=== PATIENT | female | born 1980 | race Caucasian/White ===

== ENCOUNTER 2018-08-02 22:42 | Emergency (ER) | payer OTHER ==
[~2018-08-02] VITALS: Ht 152.4 cm; Wt 65.8 kg
[~2018-08-02 22:42] MED LIST: ADDERALL 20 MG20 M1; CLONIDINE; DROSPIRENONE-E1 EACH PO; FLOMAX0.4 MG PO; MACROBID 100 M100 M1 PO; PERCOCET 5-3251 EACH PO; ZOFRAN ODT4 MG PO; ZOLOFT50 MG PO
[2018-08-02] MEDS ORDERED: SYNTHROID75 MCG PO (22:55)
[2018-08-03] MEDS ORDERED: BACTRIM DS TAB1 EACH PO (00:02)
[2018-08-03] MEDS ORDERED: CLEOCIN HCL300 MG PO (00:02)
[2018-08-03] MEDS ORDERED: NORCO 5-325 TA1 EACH PO (00:08)
[2018-08-03] MEDS ORDERED: AUGMENTIN 875-1 EACH PO (00:08)
[2018-08-03 00:11] VITALS: BP 132/78
== END 2018-08-03 00:11 | disposition home or self-care (01) ==
LOC: M.ERS 22:42
DX: S81.851A Open bite, right lower leg, initial encounter (principal); F41.9 Anxiety disorder, unspecified; W54.0XXA Bitten by dog, initial encounter; Y93.89 Activity, other specified; Y92.89 Other specified places as the place of occurrence of the external cause; Y99.8 Other external cause status

== ENCOUNTER 2019-04-13 19:10 | Emergency (ER) | payer OTHER ==
[~2019-04-13] VITALS: Ht 160 cm; Wt 69.8 kg
--- NOTE | ~2019-04-13 | EKG ---
[place] [address] ELECTROCARDIOGRAM REPORT Name: CHRISTY CHAPMAN Room: [facility]#: [id number] Admission: 04/13/19 Attend Phys: Discharge: 04/13/19 Date of : 78 Date of Service: 04/13/192014 Report #: [id number] THIS REPORT FOR: cc: MARIE - No family physician/PCP FAM - No family physician/PCP Byron Matthews MD ~ THIS REPORT FOR: //name// [facility] ED Test Date: 2019-04-13 Test Time: 20:15:39 Pat Name: CHRISTY CHAPMAN Department: Room: Gender: F [employer] Vendor: HAI : 1980 Requested By: Nisha Smith Order Number: [id number] MD: Measurements Intervals [place] Rate: 75 P: 42 NC: 153 QRS: -7 QRSD: 103 T: 20 QT: 389 QTc: 435 Interpretive Statements Sinus rhythm Borderline T wave abnormalities No previous ECG available for comparison [email or web address] By: 14 14 Epiphany Epiphany, /EPI
[~2019-04-13 19:10] MED LIST changes: +AUGMENTIN 875-1 EACH PO; +BACTRIM DS TAB1 EACH PO; +CLEOCIN HCL300 MG PO; +NORCO 5-325 TA1 EACH PO; +SYNTHROID75 MCG PO
[2019-04-13] MEDS ORDERED: SERTRALINE HCL100 MG PO (19:27)
[2019-04-13] MEDS ORDERED: LEVO-T75 MCG PO (19:27)
[2019-04-13 20:14] LABS: HEMATOCRIT 45.7 % (37.0-47.0); HEMOGLOBIN 15.7 gm/dL (12.0-15.0); MCH 30.9 pg (26.0-34.0); MCHC 34.5 g/dL (28.0-37.0); MCV 89.6 fL (80.0-100.0); MPV 7.9 fl. (7.2-11.1); NUCLEATED RBCS 0 /100WBC; PLATELET COUNT* 229 thou/uL (150-400); RDW-CV 13.6 % (10.5-14.5); WBC 11.2 thou/uL (4.0-11.0)
[2019-04-13 20:23] LABS: CALCIUM 8.6 mg/dL (8.5-10.1)
[2019-04-13 20:28] LABS: ALBUMIN 4.2 g/dL (3.4-5.0); TOTAL BILIRUBIN 0.5 mg/dL (<0.1-1.0); TOTAL PROTEIN 7.8 g/dL (6.4-8.2)
[2019-04-13 20:45] LABS: ABSOLUTE LYMPHOCYTES 0.1 thou/uL (0.8-5.3); ABSOLUTE MONOCYTES 1.1 thou/uL (0.0-1.2)
[2019-04-13 20:46] LABS: PLATELET ESTIMATE ADEQUATE
[2019-04-13 21:09] LABS: URINE BLOOD NEGATIVE (Negative); URINE CLARITY CLEAR; URINE COLOR YELLOW; URINE GLUCOSE-RANDOM NEGATIVE (Negative); URINE KETONES TRACE (Negative); URINE LEUKOCYTES NEGATIVE (Negative); URINE NITRITE NEGATIVE (Negative); URINE PROTEIN NEGATIVE (Negative); URINE SPECIFIC GRAVITY >= 1.030 (1.005-1.030); URINE UROBILINOGEN 0.2 E.U./dl (0.2-1.0)
[2019-04-13 21:15] LABS: URINE BILIRUBIN 1+ (Negative)
[2019-04-13 21:17] LABS: ICTOTEST (BILI CONFIRMATORY) Negative (Negative)
[2019-04-13] MEDS ORDERED: BENTYL 10 MG CA10 MG PO (22:44)
[2019-04-13] MEDS ORDERED: TORADOL 10 MG T10 MG PO (22:44)
[2019-04-13] MEDS ORDERED: ZOFRAN ODT4 MG PO (23:05)
[2019-04-13 23:07] VITALS: BP 111/80
[2019-04-14] MEDS ORDERED: FLEXERIL PO ×2 (07:23→09:10)
[2019-04-14] MEDS ORDERED: NORCO 5-325 TA1 EAC1 PO (09:10)
[2019-04-14] MEDS ORDERED: PREDNISONE 10 M10 M1 PO (09:10)
== END 2019-04-13 23:07 | disposition home or self-care (01) ==
LOC: M.ERS 19:10
PROVIDERS: Physician Assistant
DX: K52.9 Noninfective gastroenteritis and colitis, unspecified (principal); N83.201 Unspecified ovarian cyst, right side; E86.0 Dehydration; M54.6 Pain in thoracic spine; F41.9 Anxiety disorder, unspecified; E03.9 Hypothyroidism, unspecified

== ENCOUNTER 2019-04-14 06:59 | Emergency (ER) | payer OTHER ==
[~2019-04-14] VITALS: Ht 160 cm; Wt 65.8 kg
[~2019-04-14 06:59] MED LIST changes: +BENTYL 10 MG CA10 MG PO; +LEVO-T75 MCG PO; +SERTRALINE HCL100 MG PO; +TORADOL 10 MG T10 MG PO
[2019-04-14] MEDS ORDERED: FLEXERIL PO ×2 (07:23→09:10)
[2019-04-14] MEDS ORDERED: NORCO 5-325 TA1 EAC1 PO (09:10)
[2019-04-14] MEDS ORDERED: PREDNISONE 10 M10 M1 PO (09:10)
[2019-04-14 09:30] VITALS: BP 102/63
== END 2019-04-14 09:32 | disposition home or self-care (01) ==
LOC: M.ERS 06:59
DX: M54.12 Radiculopathy, cervical region (principal); E03.9 Hypothyroidism, unspecified

== ENCOUNTER 2020-12-26 02:32 | Emergency (ER) | payer OTHER ==
[~2020-12-26] VITALS: Ht 160 cm; Wt 65.8 kg
[~2020-12-26 02:32] MED LIST changes: +FLEXERIL PO; +NORCO 5-325 TA1 EAC1 PO; +PREDNISONE 10 M10 M1 PO
[2020-12-26] MEDS ORDERED: AUGMENTIN 875-1 EACH PO (04:36)
[2020-12-26] MEDS ORDERED: HYDROCODON-ACE1 EAC8 PO (04:36)
[2020-12-26 04:46] VITALS: BP 139/83
== END 2020-12-26 04:48 | disposition home or self-care (01) ==
LOC: M.ERS 02:32
DX: S60.445A External constriction of left ring finger, initial encounter (principal); E03.9 Hypothyroidism, unspecified; F41.9 Anxiety disorder, unspecified; Z79.899 Other long term (current) drug therapy; W49.04XA Ring or other jewelry causing external constriction, initial encounter; Y93.89 Activity, other specified; Y92.89 Other specified places as the place of occurrence of the external cause; Y99.8 Other external cause status